=== PATIENT | male | born 1990 | race Caucasian/White ===

== ENCOUNTER 2016-06-22 05:39 | Emergency (ER) | payer OTHER ==
[~2016-06-22] VITALS: Ht 190.5 cm; Wt 81.8 kg
[~2016-06-22 05:39] MED LIST: ADDERALL7.5 MG PO; CEPHALEXIN500 M1 PO; ILOTYCIN5 MG/GM OP; LORTAB 5/500 501 TAB PO; NO HOME MEDICATIONS; NORCO 325 MG-51 TAB PO; NORCO 325 MG-7.1 TAB PO; PERCOCET 325 MG1 TA2 PO; ZOVIRAX400 MG PO
[2016-06-22 05:42] VITALS: BP 132/67; PULSE 94; TEMP 97.7
== END 2016-06-22 06:44 | disposition left against medical advice (07) ==
LOC: COL.ER 05:39
DX: R10.84 Generalized abdominal pain (principal); Z53.21 Procedure and treatment not carried out due to patient leaving prior to being seen by health care provider

== ENCOUNTER 2016-11-13 22:59 | Emergency (ER) | payer OTHER ==
[~2016-11-13] VITALS: Ht 190.5 cm; Wt 84.1 kg
[2016-11-13 23:02] VITALS: TEMP 98.2
[2016-11-13 23:19] LABS: BASO # 0.1 (0.0-0.2); BASO % 0.6 % (0.0-2.0); EOS # 0.1 (0.0-0.7); EOS % 0.7 % (0-4.0); GRAN # 5.7 (1.4-6.5); GRAN % 64.3 % (42.2-75.2); HEMATOCRIT 49.9 % (42.0-52.0); HEMOGLOBIN 17.8 g/dl (13.5-18.0); LYMPH # 2.6 (1.2-3.4); LYMPH % 28.9 % (20.0-51.0); MEAN CELL VOLUME 88 fl (80.0-100.0); MEAN CORPUSCULAR HEMOGLOBIN 31 pg (27.0-31.0); MEAN CORPUSCULAR HGB CONC 36 g/dl (33.0-37.0); MEAN PLATELET VOLUME 8.5 fl (7.4-10.4); MONO # 0.4 (0.1-0.6); MONO % 4.3 % (1.7-9.3); PLATELET COUNT 351 K/mm3 (130-400); REDCELL DISTRIBUTION WIDTH-CV 11.8 % (11.5-14.5); WHITE BLOOD COUNT 8.9 K/mm3 (4.8-10.8)
[2016-11-13 23:30] LABS: ADJUSTED CALCIUM 7.9 mg/dL (8.4-10.2); ALANINE AMINOTRANSFERASE 51 U/L (21-72); ALBUMIN 5.1 gm/dL (3.5-5.0); ALKALINE PHOSPHATASE 176 U/L (50-136); ANION GAP 25 mmol/L (7-16); BILIRUBIN,TOTAL 0.9 mg/dL (0.0-1.0); BLOOD UREA NITROGEN 20 mg/dL (9-20); CALCIUM 8.8 mg/dL (8.4-10.2); CARBON DIOXIDE 20 mmol/L (22-30); CHLORIDE 97 mmol/L (98-107); CREATININE, serum 1.43 mg/dL (0.66-1.25); GLUCOSE 240 mg/dL (74-106); LIPASE 110 U/L (23-300); POTASSIUM 3.8 mmol/L (3.4-5.0); SODIUM 141 mmol/L (137-145); TOTAL PROTEIN 8.5 gm/dL (6.4-8.2)
[2016-11-13 23:33] LABS: ACETAMINOPHEN < 10 ug/mL (10-30); SALICYLATE < 1.0 mg/dL
[2016-11-13 23:59] LABS: PH 5 (5-8); SQUAMOUS EPITHELIAL 0-2 /hpf; URINE APPEARANCE Clear; URINE BACTERIA None Seen /hpf; URINE BILIRUBIN Negative (NEGATIVE); URINE BLOOD Negative (NEGATIVE); URINE COLOR Yellow; URINE GLUCOSE Negative (NEGATIVE); URINE KETONE Trace (NEGATIVE); URINE RBC 0-2 /hpf; URINE UROBILINOGEN Negative (NEGATIVE)
[2016-11-14 00:13] LABS: VENOUS BLOOD GAS BE -1.1 (-4-4); VENOUS BLOOD GAS SAO2 89.6 % (60-80)
[2016-11-14 00:14] LABS: VENOUS BLOOD GAS SITE CENTRAL LINE
[2016-11-14 00:16] LABS: AMPHETAMINE URINE NEGATIVE; BARBITURATES URINE NEGATIVE; BENZODIAZEPINES URINE NEGATIVE; BUPRENORPHINE URINE NEGATIVE; METHADONE URINE NEGATIVE; OPIATES URINE NEGATIVE; OXYCODONE URINE NEGATIVE; PHENCYCLIDINE URINE NEGATIVE; PROPOXYPHENE URINE NEGATIVE; THC CANNABINOIDS URINE NEGATIVE
[2016-11-14] MEDS ORDERED: ZOFRAN ODT4 MG PO (00:45)
[2016-11-14 01:21] VITALS: BP 126/77; PULSE 111
== END 2016-11-14 01:26 | disposition home or self-care (01) ==
LOC: COL.ER 22:59
PROVIDERS: Emergency Medicine
DX: E86.0 Dehydration (principal); R41.0 Disorientation, unspecified
CPT/HCPCS: J7030